=== PATIENT | male | born 1960 | race Caucasian/White ===

== ENCOUNTER 2016-06-01 08:15 | Outpatient (CLI) | payer OTHER ==
[2016-06-01 08:58] LABS: eGFR (African) > 60; eGFR (Non-African) > 60
--- NOTE | 2016-06-01 11:34 | Diagnostic Imaging Report ---
[facility] [id number] [facility].[address] 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 TECHNIQUE: MRI examination of brain is performed in routine pulsing sequences without the use of contrast. FINDINGS: The 4th ventricle lies in a normal midline position. The ventricles and sulci are within normal limits. There are scattered areas of increased T2 signal in the periventricular regions consistent with small vessel ischemic changes. There is no hypointense or hyperintense mass or midline shift. Posterior fossa and pituitary gland are within normal limits. There is no abnormal signal intensity on the diffusion-weighted images to suggest an area of acute ischemia. Normal flow void is present in the visualized intracranial vessels. The region of the 7th and 8th cranial nerves is well seen and is unremarkable. There is artifact arising from the left side of the patient's mouth presumed from metal dental work. IMPRESSION: Small vessel ischemic changes in the periventricular regions. No acute intracranial changes. Electronically signed on Jun 01, 2016 11:27:22 AM CAROL by: Chas AGUIRRE
== END 2016-06-01 08:16 ==
LOC: RAD 08:15
PROVIDERS: ATTEND Family Medicine
DX: E03.9 Hypothyroidism, unspecified (principal); E78.2 Mixed hyperlipidemia; G44.029 Chronic cluster headache, not intractable
CPT/HCPCS: 36415; 70551; 80053; 80061; 84443

== ENCOUNTER 2017-05-11 08:48 | Outpatient (CLI) | payer OTHER ==
[2017-05-11 09:09] LABS: BASOPHILS % 0.9 (0.0-1.5); EOSINOPHILS % 1.5 % (0.0-6.8); MEAN CORPUSCULAR HEMOGLOBIN 30.9 pg (28.0-34.0); MEAN CORPUSCULAR VOLUME 91.9 fl (80.0-100.0); MONOCYTES % 4.3 % (0.0-11.0); NEUTROPHILS # 5.6 # k/uL (1.4-7.7)
[2017-05-11 09:51] LABS: eGFR (African) > 60; eGFR (Non-African) 56
== END 2017-05-11 08:50 ==
LOC: LAB 08:48
PROVIDERS: ATTEND Family Medicine
DX: Z00.00 Encounter for general adult medical examination without abnormal findings (principal); E03.9 Hypothyroidism, unspecified
CPT/HCPCS: 36415; 80053; 80061; 84443; 85025

== ENCOUNTER 2017-05-28 07:01 | Outpatient (CLI) | payer OTHER ==
[2017-05-28 08:28] LABS: eGFR (African) > 60; eGFR (Non-African) > 60
== END 2017-05-28 07:02 ==
LOC: LAB 07:01
PROVIDERS: ATTEND Family Medicine
DX: R79.89 Other specified abnormal findings of blood chemistry (principal)
CPT/HCPCS: 36415; 80048

== ENCOUNTER 2018-05-25 11:38 | Outpatient (CLI) | payer OTHER ==
[2018-05-25 12:27] LABS: eGFR (Non-African) > 60
== END 2018-05-25 11:40 ==
LOC: LAB 11:38
PROVIDERS: ATTEND Family Medicine
DX: Z13.6 Encounter for screening for cardiovascular disorders (principal); Z12.5 Encounter for screening for malignant neoplasm of prostate
CPT/HCPCS: 36415; 80053; 80061; G0103